=== PATIENT | female | born 1970 | race Caucasian/White ===

== ENCOUNTER → 2019-10-27 | Outpatient (CLI) | payer OTHER ==
[~2019-10-27] MED LIST: METO25ER; SERT25
== END | disposition home or self-care (01) ==
LOC: LAB SHORT 12:29 → LAB EV 12:29
DX: N12 Tubulo-interstitial nephritis, not specified as acute or chronic (principal)
CPT/HCPCS: 87077; 87086; 87186

== ENCOUNTER → 2020-11-01 | Outpatient (CLI) | payer BC | LOC: LAB SHORT 14:08 → LAB 14:08 | DX: N39.0 Urinary tract infection, site not specified (principal) | CPT/HCPCS: 87077; 87086; 87186 ==

== ENCOUNTER 2020-12-21 09:18 | Day surgery (SDC) | payer BC ==
[~2020-12-21] VITALS: Ht 157.5 cm; Wt 87.8 kg
[~2020-12-21 09:18] MED LIST changes: +MAGNESIUM OXID500 MG; +TERB250
[2020-12-21] MEDS ORDERED: POTA8 (09:42)
== END 2020-12-21 11:30 | disposition home or self-care (01) ==
LOC: ORSCSDS 09:18
PROVIDERS: Internal Medicine Gastroenterology
PROC: 0DBN8ZX Excision of Sigmoid Colon, Via Natural or Artificial Opening Endoscopic, Diagnostic (ICD-10-PCS; principal; 2020-12-21 10:45)
DX: Z12.11 Encounter for screening for malignant neoplasm of colon (principal); K63.5 Polyp of colon; K57.30 Diverticulosis of large intestine without perforation or abscess without bleeding; I10 Essential (primary) hypertension; K64.4 Residual hemorrhoidal skin tags; Z79.899 Other long term (current) drug therapy
CPT/HCPCS: 88305; J2704; J7120

== ENCOUNTER 2022-02-27 06:08 | Day surgery (SDC) | payer BC ==
[~2022-02-27] VITALS: Ht 160 cm; Wt 88.5 kg
[~2022-02-27 06:08] MED LIST changes: +METO50ER PO; +POTA8; +PROG100 PO; -SERT25; +SERT25 PO
[2022-02-27] MEDS ORDERED: MULVITA PO (06:30)
[2022-02-27] MEDS ORDERED: MELATONIN5 M1 PO (06:31)
--- NOTE | 2022-02-27 07:23 | NUR ---
History, Chart, Medications and Allergies reviewed before start of procedure.Patient confirms NPO status and agrees with scheduled surgery. FIANCE AT BEDSIDE. PATIENT TOOK PYRIDIUM PREOP. TYPE AND SCREEN GUADALUPE, SET UP WITH LAB. nO hcg DUE TO HX OF TUBAL, DISCUSSED W/ DR. Barriga. PER OKAY TO CANCEL QUAL HCG. TWO IV'S PLACED PER ANETHESIA FOR ROBOT PROCEDURE.
--- NOTE | 2022-02-27 10:15 | NUR ---
POST OP ARRIVAL WAKES EASILY BUT DROWSY. ABD SOFT w/ LAP SITES x 4 TRANSVERSE MID ABD. WOUND GLUE OVER w/ NO DRNG. LUNGS CLEAR. HRR. WAN PAD & DISPOSABLE UNDERWEAR IN PLACE. WATER & JUICE GIVEN. DENIES N/V OR PAIN.
== END 2022-02-27 15:21 | disposition home or self-care (01) ==
LOC: ORSCMMR 06:08 → ORD 07:30 → SURS 09:54 → ORSCMMR 15:21
PROVIDERS: Obstetrics & Gynecology
PROC: 0UT94ZZ Resection of Uterus, Percutaneous Endoscopic Approach (ICD-10-PCS; principal; 2022-02-27 07:30)
PROC: 0UT9FZZ Resection of Uterus, Via Natural or Artificial Opening With Percutaneous Endoscopic Assistance (ICD-10-PCS; principal; 2022-02-27 07:30)
PROC: 0UT04ZZ Resection of Right Ovary, Percutaneous Endoscopic Approach (ICD-10-PCS; principal; 2022-02-27 07:30)
PROC: 0UT74ZZ Resection of Bilateral Fallopian Tubes, Percutaneous Endoscopic Approach (ICD-10-PCS; principal; 2022-02-27 07:30)
DX: N92.0 Excessive and frequent menstruation with regular cycle (principal); N85.00 Endometrial hyperplasia, unspecified; N93.0 Postcoital and contact bleeding; N85.2 Hypertrophy of uterus; E66.9 Obesity, unspecified; Z68.34 Body mass index [BMI] 34.0-34.9, adult; I10 Essential (primary) hypertension; Z79.899 Other long term (current) drug therapy
CPT/HCPCS: 58571; S2900; 86850; 86900; 86901; 88307; A9270; J0690; J1100; J1885; J2250; J2405; J2704; J2795; J3010; J7120

== ENCOUNTER → 2024-07-05 | Outpatient (CLI) | payer BC ==
[~2024-07-05] MED LIST changes: +MELATONIN5 M1 PO; +MULVITA PO
[2024-07-05 20:34] LABS: Bun/Creatinine Ratio 24.3 (12.0-20.0); Calcium, Blood 9.2 mg/dL (8.5-10.1); Creatinine, Blood 0.82 mg/dL (0.40-1.00)
== END ==
LOC: LAB SHORT 19:37 → LAB 19:37
PROVIDERS: Nurse Practitioner Family
DX: I10 Essential (primary) hypertension (principal)
CPT/HCPCS: 80048